=== PATIENT | female | born 1970 | race African-American/Black ===

== ENCOUNTER 2016-12-27 13:21 | Emergency (ER) | payer OTHER ==
[~2016-12-27] VITALS: Ht 170.2 cm; Wt 145.7 kg
[~2016-12-27 13:21] MED LIST: AMLO10TA2 PO; DICL50TA3 PO; LISI40TA PO
[2016-12-27] MEDS ORDERED: RABE1TAB PO (14:05)
[2016-12-27] MEDS ORDERED: MOBI15TA PO (14:05)
[2016-12-27 14:10] VITALS: BP 185/78; PULSE 99; RESP 20; TEMP 98.5
[2016-12-27] MEDS ORDERED: ROBA500T PO (14:24)
--- NOTE | 2016-12-27 14:25 | PD ---
HPI Chief Complaint: Back/ Neck Pain or Injury Time Seen by Provider: 14:09 Travel History International Travel<30 days: No Contact w/Intl Traveler<30days: No Traveled to known affect area: No History of Present Illness HPI 46-year-old female with chief complaint of low back pain radiating down left buttocks and thigh 7 days. Patient reports in June she sustained a back injury while at work and has had intermittent pain since that event. She reports the pain was previously treated with meloxicam which is now not controlling her pain. She denies reinjury to the area. She denies fever, chills, incontinence, saddle anesthesia, numbness/tingling/weakness of the extremity. Symptom severity mild. Aggravating factors include movement and twisting. Alleviating factors rest. PFSH Past Medical History Heart Rhythm Problems: No Cardiac Catheterization: No Cardiovascular Problems: Yes (HTN) High Cholesterol: No Congestive Heart Failure: No Diabetes: No Diminished Hearing: No Heparin Induced Thrombocytopen: No Hypertension: Yes Psychiatric: Yes (Depression) Immunizations Current: Yes Tetanus Vaccination: Unknown Influenza Vaccination: Yes ?: Unknown LMP: 2 WEEKS AGO : 1 Para: 0 Tubal Ligation: Yes Past Surgical History Surgical History: No Previous Surgery Coronary Artery Bypass Graft: No Valve Replacement: Yes Family History Family Myocardial Infarction: Yes (FATHER HAD [place] ) Social History Alcohol Use: Yes (Occ.) Tobacco Use: No Substance Use: No Allergies-Medications (Allergen,Severity, Reaction): Coded Allergies: No Known Allergies (Verified , 05/21/16) Reported Meds & Prescriptions Reported Meds & Active Scripts Active Reported Rabeprazole (Rabeprazole Sodium) 20 Mg Tab 20 Mg PO DAILY Mobic (Meloxicam) 15 Mg Tab 15 Mg PO DAILY Amlodipine (Amlodipine Besylate) 10 Mg Tab 10 Mg PO DAILY Review of Systems Except as stated in HPI: all other systems reviewed are Neg General / Constitutional: No: Fever Eyes: No: Visual changes HENT: No: Headaches Cardiovascular: No: Chest Pain or Discomfort Respiratory: No: Shortness of Breath Gastrointestinal: No: Abdominal Pain Genitourinary: No: Dysuria Physical Exam Narrative GENERAL: Alert, well-appearing female in no acute distress. Sitting on side of the stretcher comfortably. SKIN: Focused skin assessment warm/dry. HEAD: Atraumatic. Normocephalic. EYES: Pupils equal and round. No scleral icterus. No injection or drainage. ENT: No nasal bleeding or discharge. Mucous membranes pink and moist. NECK: Trachea midline. No JVD. CARDIOVASCULAR: Regular rate and rhythm. No murmur appreciated. RESPIRATORY: No accessory muscle use. Clear to auscultation. Breath sounds equal bilaterally. GASTROINTESTINAL: Abdomen soft, non-tender, nondistended. Hepatic and splenic margins not palpable. MUSCULOSKELETAL: No obvious deformities. No clubbing. No cyanosis. No edema. 5 out of 5 strength in lower extremities. Dorsiflex and plantar flexion intact. Normal sensation of the extremities. BACK: No CVA tenderness. No rash. No point tenderness on palpation of the spine. TTP paraspinous muscles left lumbar region. NEUROLOGICAL: Awake and alert. No obvious cranial nerve deficits. Motor grossly within normal limits. Normal speech. PSYCHIATRIC: Appropriate mood and affect; insight and judgment normal. Data Data Last Documented VS Vital Signs Date Time Temp Pulse Resp B/P Pulse Ox O2 Delivery O2 Flow Rate FiO2 12/27/16 14:10 98.5 99 20 185/78 [facility] Medical Decision Making Medical Screen Exam Complete: Yes Emergency Medical Condition: Yes Differential Diagnosis Lumbar strain, sciatica, herniated disc Narrative Course 46-year-old female with chief complaint of intermittent left low back pain that radiates down the buttocks and legs worse over the last 7 days. Patient reports original injury was in June While at work. Physical exam is reassuring and consistent with sciatica. Diagnosis Primary Impression: Sciatic leg pain Referrals: Primary Care Physician Additional Instructions: Take [id number] Motrin [id number] milligrams every 6-8 hours as needed for pain. Take the medication as prescribed. Avoid heavy lifting or strenuous activity. Follow-up with her primary care doctor. Return to the emergency department if he developed new or worsening symptoms. Scripts Methocarbamol (Robaxin)500 Mg [id number] Mg PO TID PRN (MUSCLE SPASM) #12 TAB Prov:Katelin Kwon 12/27/16 Disposition: 01 DISCHARGE HOME Condition: Stable Katelin Kwon Dec 27, 2016 14:25
== END 2016-12-27 14:38 | disposition home or self-care (01) ==
LOC: PHEFT 13:21
DX: M54.32 Sciatica, left side (principal); I10 Essential (primary) hypertension; Z86.79 Personal history of other diseases of the circulatory system; Z86.59 Personal history of other mental and behavioral disorders; X58.XXXD Exposure to other specified factors, subsequent encounter; Y99.0 Civilian activity done for income or pay
CPT/HCPCS: 99283

== ENCOUNTER 2017-04-16 12:38 | Emergency (ER) | payer SELFPAY ==
[~2017-04-16] VITALS: Ht 170.2 cm; Wt 146.0 kg
[~2017-04-16 12:38] MED LIST changes: -DICL50TA3 PO; -LISI40TA PO; +MOBI15TA PO; +RABE1TAB PO; +ROBA500T PO
[2017-04-16 12:46] VITALS: BP 148/79; PULSE 97; RESP 18; TEMP 98.7; O2SAT 97
[2017-04-16] MEDS ORDERED: CORE25TA PO (12:56)
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
[2017-04-16 13:34] LABS: GLUCOSE,URINE 100 mg/dL (NEG); KETONE, URINE TRACE mg/dL (NEG); NITRITE,URINE NEG (NEG)
[2017-04-16 13:35] LABS: BLOOD, URINE TRACE (NEG)
[2017-04-16 13:36] LABS: COMMENT (UR) CULT NOT INDICATED; CULTURE IF INDICATED CULT NOT INDICATED; METHOD OF COLLECTION CLEAN CATCH; URINE COLOR YELLOW (YELLW/STRAW); WBC, URINE 0-2 /hpf (0-5)
[2017-04-16] MEDS ORDERED: ROBA500T PO (13:55)
[2017-04-16] MEDS ORDERED: IBUP1TAB7 PO (13:55)
[2017-04-16] MEDS ORDERED: KETOROLAC TROMETHAMINE 60 MG/2 ML (IM) VIAL IM ONE (14:00)
== END 2017-04-16 14:19 | disposition home or self-care (01) ==
LOC: PHEFT 12:38
DX: S39.012A Strain of muscle, fascia and tendon of lower back, initial encounter (principal); I10 Essential (primary) hypertension; F32.9 Major depressive disorder, single episode, unspecified; Z79.899 Other long term (current) drug therapy
CPT/HCPCS: 81001; 96372; 99284; J1885

== ENCOUNTER 2017-05-26 13:25 | Emergency (ER) | payer SELFPAY ==
[~2017-05-26] VITALS: Ht 170.2 cm; Wt 143.0 kg
[~2017-05-26 13:25] MED LIST changes: +CORE25TA PO; +IBUP1TAB7 PO; -RABE1TAB PO
[2017-05-26 13:32] VITALS: BP 160/92; PULSE 117; RESP 16; TEMP 100.8; O2SAT 97
--- NOTE | 2017-05-26 13:43 | PD ---
HPI Chief Complaint: ENT Complaint Time Seen by Provider: 13:43 Travel History International Travel<30 days: No Contact w/Intl Traveler<30days: No Traveled to known affect area: No History of Present Illness HPI 47-year-old female came to the emergency room with painful deglutition since past 2-3 days. Patient says she's been trying to coley an upper respiratory tract infection but today the swelling became very painful. She has been having trouble eating or drinking anything because of the pain. Patient was afebrile in triage when she came in. There is some sick contacts. She has been taking some [id number] medications but it's not helping. Temperature was 100.8 in triage. PFSH Past Medical History Narrative Medical List of her past medical, surgical, social and family history is reviewed from the nursing note. Hx Anticoagulant Therapy: No Heart Rhythm Problems: No Cardiac Catheterization: No Cardiovascular Problems: Yes (HTN) High Cholesterol: No Congestive Heart Failure: No Diabetes: No Diminished Hearing: No Heparin Induced Thrombocytopen: No Hypertension: Yes Psychiatric: Yes (Depression) Immunizations Current: Yes ?: Not : 1 Para: 0 Tubal Ligation: Yes Past Surgical History Coronary Artery Bypass Graft: No Valve Replacement: Yes Social History Alcohol Use: Yes (Occ.) Tobacco Use: No Substance Use: No Allergies-Medications (Allergen,Severity, Reaction): Coded Allergies: No Known Allergies (Verified Adverse Reaction, Unknown, 05/26/17) Comments No known drug allergies. Reported Meds & Prescriptions Reported Meds & Active Scripts Active Augmentin (Amoxicillin-Clavulanate) 500-125 mg Tab 500 Mg PO BID 10 Days Ibuprofen 600 Mg Tab 600 Mg PO Q6H PRN Reported Coreg (Carvedilol) 25 Mg Tab 25 Mg PO BID Amlodipine (Amlodipine Besylate) 10 Mg Tab 10 Mg PO DAILY Narrative Medication List of her home medications reviewed from the nursing note. Review of Systems Except as stated in HPI: all other systems reviewed are Neg HENT: Positive: Sore Throat Physical Exam Narrative GENERAL: Awake, alert, obese, moderate distress SKIN: Focused skin assessment warm/dry. HEAD: Atraumatic. Normocephalic. EYES: Pupils equal and round. No scleral icterus. No injection or drainage. ENT: No nasal bleeding or discharge. Mucous membranes pink and moist. Tonsils enlarged and exudates present. NECK: Trachea midline. No JVD. CARDIOVASCULAR: Regular rate and rhythm. No murmur appreciated. RESPIRATORY: No accessory muscle use. Clear to auscultation. Breath sounds equal bilaterally. GASTROINTESTINAL: Abdomen soft, non-tender, nondistended. Hepatic and splenic margins not palpable. MUSCULOSKELETAL: No obvious deformities. No clubbing. No cyanosis. No edema. NEUROLOGICAL: Awake and alert. No obvious cranial nerve deficits. Motor grossly within normal limits. Normal speech. PSYCHIATRIC: Appropriate mood and affect; insight and judgment normal. Data Data Last Documented VS Orders Orders Complete Blood Count With Diff (05/26/17 14:15) Basic Metabolic Panel (Bmp) (05/26/17 14:15) Blood Culture (05/26/17 14:15) Group A Rapid Strep Screen (05/26/17 14:15) Lactic Acid (05/26/17 14:15) Ketorolac Inj (Toradol Inj) (05/26/17 14:15) Dexamethasone Inj (Decadron Inj) (05/26/17 14:15) Influenzae A/B Antigen (05/26/17 14:15) Sodium Chlor 0.9% 1000 Ml Inj (Ns 1000 M (05/26/17 14:15) Strep Culture (Group A) (05/26/17 14:20) Potassium Chloride (Kcl) (05/26/17 16:00) Potassium Chlor 20 Meq Premix (Kcl 20 Me (05/26/17 16:00) Ampicillin-Sulbactam Inj (Unasyn Inj) (05/26/17 16:30) Acetaminophen (Tylenol) (05/26/17 17:00) Labs Laboratory Tests Test 05/26/17 15:20 White Blood Count 18.0 TH/MM3 Red Blood Count 4.24 MIL/MM3 Hemoglobin 12.5 GM/DL Hematocrit 38.4 % Mean Corpuscular Volume 90.7 FL Mean Corpuscular Hemoglobin 29.5 PG Mean Corpuscular Hemoglobin Concent 32.5 % Red Cell Distribution Width 13.5 % Platelet Count 289 TH/MM3 Mean Platelet Volume 7.9 FL Neutrophils (%) (Auto) 77.7 % Lymphocytes (%) (Auto) 12.1 % Monocytes (%) (Auto) 6.1 % Eosinophils (%) (Auto) 1.5 % Basophils (%) (Auto) 2.6 % Neutrophils # (Auto) 13.9 TH/MM3 Lymphocytes # (Auto) 2.2 TH/MM3 Monocytes # (Auto) 1.1 TH/MM3 Eosinophils # (Auto) 0.3 TH/MM3 Basophils # (Auto) 0.5 TH/MM3 CBC Comment AUTO DIFF Differential Total Cells Counted 100 Neutrophils % (Manual) 66 % Band Neutrophils % 13 % Lymphocytes % 14 % Monocytes % 5 % Eosinophils % 2 % Neutrophils # (Manual) 14.2 TH/MM3 Differential Comment FINAL DIFF MANUAL Platelet Estimate NORMAL Platelet Morphology Comment NORMAL Red Cell Morphology Comment NORMAL Blood Urea Nitrogen 6 MG/DL Creatinine 0.88 MG/DL Random Glucose 124 MG/DL Calcium Level 8.4 MG/DL Sodium Level 135 MEQ/L Potassium Level 2.8 MEQ/L Chloride Level 98 MEQ/L Carbon Dioxide Level 28.0 MEQ/L Anion Gap 9 MEQ/L Estimat Glomerular Filtration Rate 84 ML/MIN Lactic Acid Level 1.0 mmol/L [facility] Medical Decision Making Medical Screen Exam Complete: Yes Emergency Medical Condition: Yes Medical Record Reviewed: Yes Differential Diagnosis strep throat, viral pharyngitis Narrative Course 4:33 PM blood test was ordered. Strep and rapid influenza negative. Patient was given medication for pain and fever. Once the blood test results came back she was started on IV Unasyn. She was also given IV fluid. Meanwhile potassium came back critically low. I have ordered for IV and by mouth potassium replacement. I discussed with her all these test results. Patient says she is feeling better in terms of the pain and swallowing which I think if the result of the Decadron she received. I'm comfortable sending her home on Augmentin prescription once all these medications are done. Patient is comfortable going home. Procedures EKG Prior to Arrival: No Diagnosis Primary Impression: Tonsillitis Additional Impressions: Odynophagia Hypokalemia Referrals: Primary Care Physician Additional Instructions: please take the medications as per the prescription direction. Return to the ER if condition worsens or any other new concerns. Med/Other Pt SpecificInfo: Prescription(s) given Scripts Amoxicillin-Clavulanate (Augmentin) 500-125 mg Tab 500 MG PO BID for Infection for 10 Days, TAB 0 Refills Prov: Serge Preciado MD 05/26/17 Ibuprofen (Ibuprofen) 600 Mg Tab 600 MG PO Q6H Y for Pain/Inflammation, #40 TAB 0 Refills Prov: Serge Preciado MD 05/26/17 Disposition: 01 DISCHARGE HOME Condition: Stable Serge Preciado MD May 26, 2017 13:43
[2017-05-26 13:46] VITALS: BP 154/98; PULSE 114; RESP 16; TEMP 100.8; O2SAT 98
[2017-05-26] MEDS ORDERED: DEXAMETHASONE SOD PHOS 20 MG/5 ML VIAL IV PUSH ONE (14:15)
[2017-05-26] MEDS ORDERED: KETOROLAC TROMETHAMINE 30 MG/ML (IVP) VIAL IV PUSH ONE (14:15)
[2017-05-26] MEDS ORDERED: SODIUM CHLOR 0.9% 1000 ML INJ 1,000 ML IV ONE (14:15)
[2017-05-26 15:35] LABS: AUTOMATED NEUTROPHIL # 13.9 TH/MM3 (1.8-7.7); BASOPHIL # 0.5 TH/MM3 (0-0.2); BASOPHIL % 2.6 % (0.0-2.0); EOSINOPHIL # 0.3 TH/MM3 (0-0.4); EOSINOPHIL % 1.5 % (0.0-4.0); HEMATOCRIT 38.4 % (35.0-46.0); HEMOGLOBIN 12.5 GM/DL (11.6-15.3); LYMPH % 12.1 % (9.0-44.0); LYMPHOCYTE # 2.2 TH/MM3 (1.0-4.8); MEAN CELL VOLUME 90.7 FL (80.0-100.0); MEAN CORPUSCULAR HEMOGLOBIN 29.5 PG (27.0-34.0); MEAN CORPUSCULAR HGB CONC 32.5 % (32.0-36.0); MEAN PLATELET VOLUME 7.9 FL (7.0-11.0); MONO % 6.1 % (0.0-8.0); MONOCYTE # 1.1 TH/MM3 (0-0.9); NEUT % 77.7 % (16.0-70.0); PLATELET COUNT 289 TH/MM3 (150-450); RED BLOOD COUNT 4.24 MIL/MM3 (4.00-5.30); RED CELL DISTRIBUTION WIDTH 13.5 % (11.6-17.2)
[2017-05-26 15:57] LABS: CALCIUM 8.4 MG/DL (8.5-10.1); CREATININE 0.88 MG/DL (0.50-1.00)
[2017-05-26] MEDS ORDERED: POTASSIUM CHLOR 20 MEQ PREMIX 100 ML IV ONE (16:00)
[2017-05-26] MEDS ORDERED: POTASSIUM CHLORIDE 20 MEQ CONTROLLED RELEASE TAB PO ONE (16:00)
[2017-05-26 16:16] LABS: BANDS 13 % (0-6); LYMPHOCYTES 14 % (9-44); MONOCYTES 5 % (0-8); NEUTROPHIL # MANUAL DIFF 14.2 TH/MM3 (1.8-7.7); POLYS (SEG NEUTROPHILS) 66 % (16-70)
[2017-05-26] MEDS ORDERED: AMPICILLIN-SULBACTAM INJ 3 GM in SODIUM CHLORIDE 0.9% INJ 100 ML IV ONE (16:30)
[2017-05-26 16:46] VITALS: BP 121/73; PULSE 97; RESP 18; TEMP 100.2; O2SAT 95
[2017-05-26] MEDS ORDERED: AUGM500T7 PO (16:48)
[2017-05-26] MEDS ORDERED: IBUP-232 PO (16:48)
[2017-05-26] MEDS ORDERED: ACETAMINOPHEN 325 MG TAB PO ONE (17:00)
[2017-05-26 19:20] VITALS: BP 131/70
== END 2017-05-26 19:50 | disposition home or self-care (01) ==
LOC: PHED 13:25
DX: J03.90 Acute tonsillitis, unspecified (principal); R13.10 Dysphagia, unspecified; E87.6 Hypokalemia; R50.9 Fever, unspecified; I10 Essential (primary) hypertension; Z86.59 Personal history of other mental and behavioral disorders
CPT/HCPCS: 80048; 83605; 85007; 85027; 87040; 87081; 87804; 87880; 96361; 96365; 96366; 96367; 96375; 99284; J0295; J1100; J1885; J3480; J7030

== ENCOUNTER 2017-10-11 13:27 | Emergency (ER) | payer OTHER ==
[~2017-10-11] VITALS: Ht 170.2 cm; Wt 133.0 kg
[~2017-10-11 13:27] MED LIST changes: +AUGM500T7 PO; +IBUP-232 PO; -IBUP1TAB7 PO; -MOBI15TA PO; -ROBA500T PO
[2017-10-11 13:33] VITALS: BP 192/86; PULSE 105; RESP 16; TEMP 99.1; O2SAT 99
[2017-10-11] MEDS ORDERED: LEVO50TA4 PO (13:44)
[2017-10-11] MEDS ORDERED: IBUPROFEN 600 MG TAB PO ONE (13:45)
[2017-10-11] MEDS ORDERED: DEXAMETHASONE SOD PHOS 20 MG/5 ML VIAL IM ONE (13:45)
--- NOTE | 2017-10-11 13:55 | PD ---
HPI Chief Complaint: ENT Complaint Time Seen by Provider: 13:38 Travel History International Travel<30 days: No Contact w/Intl Traveler<30days: No Traveled to known affect area: No History of Present Illness HPI Patient is a 47 year old female who comes in complaining of sore throat and ear pain. She says it started two days ago. She says she was sent home from work today due to a fever of 100.3. She took some Ibuprofen around 5AM with no relief of her symptoms. She says the pain radiates into her left ear. She denies difficulty breathing, coughing, nasal congestion. Severity is mild to moderate. PFSH Past Medical History Hx Anticoagulant Therapy: No Depression: Yes Heart Rhythm Problems: No Cardiac Catheterization: No Cardiovascular Problems: Yes (HTN) High Cholesterol: No Congestive Heart Failure: No Diabetes: No Diminished Hearing: No Heparin Induced Thrombocytopen: No Hypertension: Yes Psychiatric: Yes (Depression) Immunizations Current: Yes Thyroid Disease: Yes ?: Not LMP: LAST WEEK : 1 Para: 0 Tubal Ligation: Yes Past Surgical History Coronary Artery Bypass Graft: No Valve Replacement: Yes Family History Family Myocardial Infarction: Yes (FATHER HAD [place] ) Social History Alcohol Use: Yes (Occ.) Tobacco Use: No Substance Use: No Allergies-Medications (Allergen,Severity, Reaction): Coded Allergies: No Known Allergies (Verified Adverse Reaction, Unknown, 10/11/17) Reported Meds & Prescriptions Reported Meds & Active Scripts Active Reported Levothyroxine (Levothyroxine Sodium) 50 Mcg Tab 50 Mcg PO DAILY Amlodipine (Amlodipine Besylate) 10 Mg Tab 10 Mg PO DAILY Review of Systems General / Constitutional: Positive: Fever HENT: Positive: Sore Throat, No: Headaches, Congestion Respiratory: No: Cough, Shortness of Breath Gastrointestinal: No: Nausea, Vomiting Musculoskeletal: No: Myalgias, Edema Skin: No Rash, No Change in Pigmentation Neurologic: No: Weakness, Dizziness Physical Exam Narrative GENERAL: Awake and alert, in no acute distress. SKIN: Focused skin assessment warm/dry. HEAD: Atraumatic. Normocephalic. EYES: Pupils equal and round. No scleral icterus. ENT: Enlarged tonsils with exudates. Uvula is midline. Both TMs within normal limits. Mucous membranes pink and moist. CARDIOVASCULAR: Regular rate and rhythm. No murmur appreciated. RESPIRATORY: No accessory muscle use. Clear to auscultation. Breath sounds equal bilaterally. MUSCULOSKELETAL: No obvious deformities. No clubbing. No cyanosis. No edema. NEUROLOGICAL: Awake and alert. No obvious cranial nerve deficits. Motor grossly within normal limits. Normal speech. Data Data Last Documented VS Vital Signs Date Time Temp Pulse Resp B/P (MAP) Pulse Ox O2 Delivery O2 Flow Rate FiO2 10/11/17 13:33 99.1 105 16 192/86 (121) 99 Orders Orders Group A Rapid Strep Screen (10/11/17 13:43) Ibuprofen (Motrin) (10/11/17 13:45) Dexamethasone Inj (Decadron Inj) (10/11/17 13:45) Strep Culture (Group A) (10/11/17 13:40) [facility] Medical Decision Making Medical Screen Exam Complete: Yes Emergency Medical Condition: Yes Medical Record Reviewed: Yes Differential Diagnosis URI versus viral pharyngitis versus strep pharyngitis Narrative Course Patient is a 47-year-old female who comes in complaining of throat pain. Exam shows enlarged tonsils with exudates. Rapid strep screen is negative. We will discharged with prescription for penicillin based on symptoms. She was given ibuprofen. She refused Decadron. Advised to continue to take ibuprofen as needed. Advised drink plenty of fluids. Advised return as needed for any worsening symptoms. Diagnosis Primary Impression: Pharyngitis Qualified Codes: J02.9 - Acute pharyngitis, unspecified Patient Instructions: General Instructions, Pharyngitis (ED) Additional Instructions: Take all of the antibiotic. Drink plenty of fluids. Take ibuprofen as needed for pain. Return to the ED as needed for any worsening symptoms. Follow-up with a primary care doctor. Scripts Penicillin V Potassium (Penicillin V Potassium) 500 Mg Tab 500 MG PO Q6H for Infection for 7 Days, #28 TAB 0 Refills Prov: Dayana Nina MD 10/11/17 Disposition: 01 DISCHARGE HOME Condition: Stable Dayana Nina MD October 11, 2017 13:55
[2017-10-11] MEDS ORDERED: PENI500T PO (14:13)
== END 2017-10-11 14:22 | disposition home or self-care (01) ==
LOC: PHEFT 13:27
DX: J02.9 Acute pharyngitis, unspecified (principal); H92.09 Otalgia, unspecified ear; I10 Essential (primary) hypertension
CPT/HCPCS: 87081; 87880; 96372; 99283; J1100